=== PATIENT | male | born 2000 | race Caucasian/White ===

== ENCOUNTER 2019-09-25 09:00 | Inpatient (IN) | payer OTHER ==
[~2019-09-25] VITALS: Ht 182.9 cm; Wt 69.0 kg
[2019-09-25 10:14] LABS: BASOPHIL % 0.3 % (0-2); PLATELET COUNT 215 x10^3mcL (130-400); RED CELL DISTRIBUTION WIDTH 12.3 % (11.5-14.5)
[2019-09-25 10:45] LABS: microscopic required? YES
[2019-09-25 10:46] LABS: urine erythrocyte TRACE (NEGATIVE)
[2019-09-25 11:12] LABS: CALCIUM 7.9 mg/dL (8.5-10.1); CARBON DIOXIDE 27.9 mmol/L (21-32); CHLORIDE SERUM 105 mmol/L (98-107); CREATININE SERUM 0.9 mg/dL (0.7-1.3); GFR1 > 60 mL/min; GLUCOSE SERUM 83 mg/dL (74-106); POTASSIUM SERUM 3.9 mmol/L (3.5-5.1); SODIUM SERUM 141 mmol/L (136-145)
[2019-09-25 11:16] LABS: ALBUMIN 3.4 g/dL (3.4-5.0); ALKALINE PHOSPHATASE 97 U/L (46-116); ALT/SGPT 11 U/L (16-63); AST/SGOT 18 U/L (15-37); BILIRUBIN TOTAL 0.22 mg/dL (0.20-1.00); TOTAL PROTEIN, SERUM 6.3 g/dL (6.4-8.2)
[2019-09-25 11:17] LABS: AMPHETAMINE QUAL UR NONE DETECTED (See below)
[2019-09-25 14:01] VITALS: BP 136/54
[2019-09-25 15:03] VITALS: Ht 182.9 cm; Wt 69.0 kg
[2019-09-25 19:14] VITALS: BP 122/43
[2019-09-25 23:13] VITALS: BP 132/43
[2019-09-26 03:20] VITALS: BP 122/63
[2019-09-26 05:26] LABS: CALCIUM 8.4 mg/dL (8.5-10.1); CARBON DIOXIDE 27.3 mmol/L (21-32); CHLORIDE SERUM 105 mmol/L (98-107); CREATININE SERUM 0.9 mg/dL (0.7-1.3); GFR1 > 60 mL/min; GLUCOSE SERUM 87 mg/dL (74-106); POTASSIUM SERUM 3.2 mmol/L (3.5-5.1); SODIUM SERUM 141 mmol/L (136-145)
[2019-09-26 05:27] LABS: BASOPHIL % 0.3 % (0-2); PLATELET COUNT 213 x10^3mcL (130-400); RED CELL DISTRIBUTION WIDTH 12.9 % (11.5-14.5)
[2019-09-26 07:20] VITALS: BP 107/50
[2019-09-26 10:57] VITALS: BP 131/67
[2019-09-26 16:11] VITALS: BP 147/73
== END 2019-09-26 17:41 | disposition left against medical advice (07) | DRG 816 ==
LOC: EDBD 09:00 → ED 09:00 → DU 12:14 → IC 12:14 → DU 09-26 10:32 → MU 09-26 15:37
PROVIDERS: Emergency Medicine; ADMIT Internal Medicine
DX: T62.2X1A Toxic effect of other ingested (parts of) plant(s), accidental (unintentional), initial encounter (principal); F12.10 Cannabis abuse, uncomplicated; F23 Brief psychotic disorder; F84.0 Autistic disorder; R41.82 Altered mental status, unspecified; R45.1 Restlessness and agitation; Y92.007 Garden or yard of unspecified non-institutional (private) residence as the place of occurrence of the external cause
CPT/HCPCS: 82962; C9113; G0378; G0480; J1630; J2060; J3480; J7030; J7042

== ENCOUNTER 2020-01-24 19:55 | Emergency (ER) | payer OTHER ==
[~2020-01-24] VITALS: Ht 193 cm; Wt 72.6 kg
[2020-01-24 20:02] VITALS: Ht 193 cm; Wt 72.6 kg
[2020-01-24 22:10] VITALS: BP 143/90
[2020-01-24 22:34] LABS: AMPHETAMINE QUAL UR NONE DETECTED (See below)
== END 2020-01-24 22:11 | disposition other institution (70) ==
LOC: ED 19:55
PROVIDERS: Emergency Medicine
DX: T14.8XXA Other injury of unspecified body region, initial encounter (principal); R00.0 Tachycardia, unspecified; Y04.8XXA Assault by other bodily force, initial encounter; Y93.89 Activity, other specified; Y92.89 Other specified places as the place of occurrence of the external cause; Y99.8 Other external cause status
CPT/HCPCS: 36415; G0480; Q0092

== ENCOUNTER → 2020-01-24 22:30 | Emergency (ER) | payer OTHER | END | disposition other institution (70) | LOC: ED 22:30 | DX: Z02.89 Encounter for other administrative examinations (principal) ==